=== PATIENT | male | born 1980 | race Caucasian/White ===

== ENCOUNTER 2016-06-07 12:58 | Emergency (ER) | payer SELFPAY ==
--- NOTE | 2016-06-07 16:01 | ED NURSING NOTES ---
Clinical Report - Nurses [facility] [address] [place] [address] 06/07/2016 13:00 [id number] Triage time 13:15 Jun 07 2016. Acuity: LEVEL 4. Chief Complaint: (pain in butt). --13:18 Al Irvin R.N. 13:15 06/07/16. BP: 174/97. HR: 82. RR: 18. O2 saturation: 98%. Temp: 97.9 F. --13:18 Al Irvin R.N. Weight: 76.2 kg. Height/Length: 66 inches. BMI: 27.1. --13:16 Al Irvin R.N. Medications None. --13:16 Al Irvin R.N. Allergies No Known Drug Allergy. --13:16 Al Irvin R.N. History Arrived by private vehicle. ( Pt reports hemorrhoids for last 3 years increased in pain last night). SOCIAL HX: Light tobacco smoker. Occasional alcohol use. History of drug use: marijuana. --13:18 Al Irvin R.N. Interventions ID band on patient. To treatment room. --13:18 Al Irvin R.N. PHYSICAL ASSESSMENT GENERAL / NEURO / PSYCH: Alert. Oriented X 4. Appears in no acute distress. RESPIRATORY: Respirations not labored. GI / : Bowel sounds within normal limits. SKIN: Skin is warm and dry. --13:19 Al Irvin R.N. NURSING PROGRESS NOTES Patient gowned. Reassurance given. Call light placed in reach. Side rails up x 1. Bed placed in lowest position. --13:20 Al Irvin R.N. ( assisted Dr. Rodriguez with procedure . 20 minutes. Pt. given pads to place on wound area.). --15:59 Jaimie Lockett, ER Tech1. DISPOSITION / DISCHARGE 16:18 06/07/16. BP: 122/63. HR: 62. RR: 18. O2 saturation: 100%. --16:19 Al Irvin R.N. Departure time: 1615. Condition at departure: improved. No learning barriers present. Discharge instructions provided and reviewed with the patient. Reviewed warnings. Reviewed medication(s). Treatments reviewed. Reviewed referrals. Patient verbalized understanding. Written instructions provided in French. The patient was discharged home and accompanied by family. He left the Emergency Department ambulatory and via private vehicle. Family member driving. --16:19 Al Irvin R.N. Locked/Released at 06/07/2016 20:59 by Al Irvin R.N.
--- NOTE | 2016-06-07 16:01 | ED CLINICAL REPORT ---
Clinical Report - Physicians/Mid Levels [facility] [address] [place] [address] 06/07/2016 13:00 Patient: MATTHIAS MONSALVE Time Seen: 14:13. Arrived- By private vehicle. Historian- patient. HISTORY OF PRESENT ILLNESS Chief Complaint: RECTAL PAIN and HEMORRHOIDS. This started yesterday. (3 years ago similar milder episode Worse last night). Is still present. It was abrupt in onset. The patient has had rectal pain but not had dark stools or hard stools. No constipation, nausea or vomiting. Similar symptoms previously: Once, milder. REVIEW OF SYSTEMS No cough, difficulty breathing, chest pain, skin rash or joint pain. Remote history of constipation. PAST HISTORY Illness: hx of prior constipation. SOCIAL HISTORY Current every day smoker. ADDITIONAL NOTES The nursing notes have been reviewed. PHYSICAL EXAM Vital Signs: 06/07/2016 16:18 BP: 122/63. HR: 62. RR: 18. O2 saturation: 100%. 06/07/2016 13:15 BP: 174/97. HR: 82. RR: 18. O2 saturation: 98%. Temp: 97.9 F. Appearance: Alert. Patient in mild distress. Respiratory: No respiratory distress. Abdomen: Nontender. Rectal: (Large rick of external hemorrhoids). Skin: Skin warm. Normal skin color. No rash. PROGRESS AND PROCEDURES Hemorrhoid / Thrombectomy: Performed by me. Explained procedure's risks, benefits, and alternatives to the patient. Consent obtained. The procedure was performed with the patient in the lateral decubitus position. Local anesthesia provided using 0.50% bupivacaine. Hemorrhoid(s) located externally. Cleansed with Betadine. Incision made with a #11 blade. Linear incision used. A moderate amount of clots were drained. No complications. Estimated blood loss: 3 mL. Excised at 9 and 3 oclock. Moderate clot expressed at 9 oclock. Minimal at 3 oclock. Course of Care: 00:19 06/09/16. Pt states pain is 0/10 post procedure. Disposition: Discharged. Condition: stable. CLINICAL IMPRESSION Thrombosed external hemorrhoids INSTRUCTIONS (RECHECK IN ABOUT 7 DAYS FOR CHECK IMMEIDATE RECHECK IF WORSE THERE MAY BE SOME BLEEDING. IF SO APPLY PRESSURE FOR ABOUT 10 MINUTES WITHOUT STOPPING. REPEAT X 15 MINUTES IF NEEDED. IF STILL BLEEDING THEN RECHECK IN ED). Prescription Medications: Hydrocodone/APAP 5mg / 325mg: take 1 orally every 4 hours as needed for pain. Dispense twelve (12). (USE SPARINGLY TO AVOID CONSTIPATION) Understanding of the discharge instructions verbalized by patient. Follow-up with: [facility], , , [address], , [place], [address] (Electronically signed by Sami Rodriguez MD 06/09/2016 0:21)
--- NOTE | 2016-06-07 16:01 | ED NURSING NOTES ---
Clinical Report - Nurses [facility] [address] [place] [address] 06/07/2016 13:00 [id number] TRI[facility] Triage time 13:15 Jun 07 2016. Acuity: LEVEL 4. Chief Complaint: (pain in butt). --13:18 Al Irvin R.N. 13:15 06/07/16. BP: 174/97. HR: 82. RR: 18. O2 saturation: 98%. Temp: 97.9 F. --13:18 Al Irvin R.N. Weight: 76.2 kg. Height/Length: 66 inches. BMI: 27.1. --13:16 Al Irvin R.N. Medications None. --13:16 Al Irvin R.N. Allergies No Known Drug Allergy. --13:16 Al Irvin R.N. History Arrived by private vehicle. ( Pt reports hemorrhoids for last 3 years increased in pain last night). SOCIAL HX: Light tobacco smoker. Occasional alcohol use. History of drug use: marijuana. --13:18 Al Irvin R.N. Interventions ID band on patient. To treatment room. --13:18 Al Irvin R.N. PHYSICAL ASSESSMENT GENERAL / NEURO / PSYCH: Alert. Oriented X 4. Appears in no acute distress. RESPIRATORY: Respirations not labored. GI / : Bowel sounds within normal limits. SKIN: Skin is warm and dry. --13:19 Al Irvin R.N. NURSING PROGRESS NOTES Patient gowned. Reassurance given. Call light placed in reach. Side rails up x 1. Bed placed in lowest position. --13:20 Al Irvin R.N. ( assisted Dr. Rodriguez with procedure . 20 minutes. Pt. given pads to place on wound area.). --15:59 Jaimie Lockett, ER Tech1. DISPOSITION / DISCHARGE 16:18 06/07/16. BP: 122/63. HR: 62. RR: 18. O2 saturation: 100%. --16:19 Al Irvin R.N. Departure time: 1615. Condition at departure: improved. No learning barriers present. Discharge instructions provided and reviewed with the patient. Reviewed warnings. Reviewed medication(s). Treatments reviewed. Reviewed referrals. Patient verbalized understanding. Written instructions provided in [place]. The patient was discharged home and accompanied by family. He left the Emergency Department ambulatory and via private vehicle. Family member driving. --16:19 Al Irvin R.N. Locked/Released at 06/07/2016 20:59 by Al Irvin R.N.
--- NOTE | 2016-06-07 16:01 | ED CLINICAL REPORT ---
Clinical Report - Physicians/Mid Levels [facility] [address] [place] [address] 06/07/2016 13:00 Patient: MATTHIAS MONSALVE Time Seen: 14:13. Arrived- By private vehicle. Historian- patient. HISTORY OF PRESENT ILLNESS Chief Complaint: RECTAL PAIN and HEMORRHOIDS. This started yesterday. (3 years ago similar milder episode Worse last night). Is still present. It was abrupt in onset. The patient has had rectal pain but not had dark stools or hard stools. No constipation, nausea or vomiting. Similar symptoms previously: Once, milder. REVIEW OF SYSTEMS No cough, difficulty breathing, chest pain, skin rash or joint pain. Remote history of constipation. PAST HISTORY Illness: hx of prior constipation. SOCIAL HISTORY Current every day smoker. ADDITIONAL NOTES The nursing notes have been reviewed. PHYSICAL EXAM Vital Signs: 06/07/2016 16:18 BP: 122/63. HR: 62. RR: 18. O2 saturation: 100%. 06/07/2016 13:15 BP: 174/97. HR: 82. RR: 18. O2 saturation: 98%. Temp: 97.9 F. Appearance: Alert. Patient in mild distress. Respiratory: No respiratory distress. Abdomen: Nontender. Rectal: (Large rick of external hemorrhoids). Skin: Skin warm. Normal skin color. No rash. PROGRESS AND PROCEDURES Hemorrhoid / Thrombectomy: Performed by me. Explained procedure's risks, benefits, and alternatives to the patient. Consent obtained. The procedure was performed with the patient in the lateral decubitus position. Local anesthesia provided using 0.50% bupivacaine. Hemorrhoid(s) located externally. Cleansed with Betadine. Incision made with a #11 blade. Linear incision used. A moderate amount of clots were drained. No complications. Estimated blood loss: 3 mL. Excised at 9 and 3 oclock. Moderate clot expressed at 9 oclock. Minimal at 3 oclock. Course of Care: 00:19 06/09/16. Pt states pain is 0/10 post procedure. Disposition: Discharged. Condition: stable. CLINICAL IMPRESSION Thrombosed external hemorrhoids INSTRUCTIONS (RECHECK IN ABOUT 7 DAYS FOR CHECK IMMEIDATE RECHECK IF WORSE THERE MAY BE SOME BLEEDING. IF SO APPLY PRESSURE FOR ABOUT 10 MINUTES WITHOUT STOPPING. REPEAT X 15 MINUTES IF NEEDED. IF STILL BLEEDING THEN RECHECK IN ED). Prescription Medications: Hydrocodone/APAP 5mg / 325mg: take 1 orally every 4 hours as needed for pain. Dispense twelve (12). (USE SPARINGLY TO AVOID CONSTIPATION) Understanding of the discharge instructions verbalized by patient. Follow-up with: [facility], , , [address], , [place], [address] (Electronically signed by Sami Rodriguez MD 06/09/2016 0:21)
--- NOTE | 2016-06-09 00:21 | ED MED RECONCILIATION SUMMARY ---
Patient: MERYMATTHIAS FRANCO Medication Reconciliation Report [facility] VisitID: [id number] [address] [place] [address] 35y, M Registration Date/Time: 06/07/2016 Weight: 76.2 kg Height/Length: 66 in. BMI: 27.1 ALLERGIES: No Known Drug Allergy The patient's Home Medications are listed below: NONE. The source(s) of the original Home Medication information: Not obtained. The following Medications were given to the patient in the Emergency Department: None. The following Medications were prescribed to the patient: Hydrocodone/APAP 5mg / 325mg: take 1 orally every 4 hours as needed for pain. Dispense twelve (12).(USE SPARINGLY TO AVOID CONSTIPATION) -- Sami Rodriguez MD
--- NOTE | 2016-06-09 00:21 | ED MAR SUMMARY ---
..... Medication Administration Record [facility] [address] [place], [place] [id number] Patient: MERY MONTALVOMATTHIAS ROJAS Visit ID: [id number] 35y, M Weight: 76.2 kg Height/Length: 66 in BMI: 27.1 ALLERGIES: No Known Drug Allergy
--- NOTE | 2016-06-09 00:21 | ED DISCHARGE INSTRUCTIONS ---
Patient: MATTHIAS MONSALVE General Instructions [facility] VisitID: [id number] [address], [place] [address] 35y, M Registration Date/Time: 06/07/2016 Thrombosed external hemorrhoids INSTRUCTIONS (RECHECK IN ABOUT 7 DAYS FOR CHECK IMMEIDATE RECHECK IF WORSE THERE MAY BE SOME BLEEDING. IF SO APPLY PRESSURE FOR ABOUT 10 MINUTES WITHOUT STOPPING. REPEAT X 15 MINUTES IF NEEDED. IF STILL BLEEDING THEN RECHECK IN ED). Prescription Medications: Hydrocodone/APAP 5mg / 325mg: take 1 orally every 4 hours as needed for pain. Dispense twelve (12). (USE SPARINGLY TO AVOID CONSTIPATION) Understanding of the discharge instructions verbalized by patient. Follow-up with: [facility], , , [address], , [place], [address] ADDITIONAL INFORMATION Hemorrhoids,External A hemorrhoid is a local swelling of the veins around the rectum. These most often occur from repeated forceful straining during bowel movements or heavy lifting. It may also occur in the last few months of . A hemorrhoid feels like a soft lump. It may itch from time to time. When it is inflamed it becomes hard and very painful. Home Care: SITZ BATHS: Sit in a tub filled with about 6 inches of hot water. Allow the water to run in order to keep it hot for a total of 10-15 minutes. Repeat this three times a day until pain is relieved. Keep your stools soft to avoid the need to strain when having a bowel movement. Unless another medicine was prescribed, try the following: IF YOU ARE CONSTIPATED: You may use siov-vii-fskvrxt laxatives such as MILK OF MAGNESIA (mild acting) or, DULCOLAX (if stronger action is needed). IF YOU ARE NOT CONSTIPATED but stools are hard, try taking Colace (docusate sodium) which is a stool softener. This will soften stools without producing diarrhea. Drinking extra fluids may also help. The use of creams applied to the hemorrhoid itself, such as ANUSOL or PREPARATION H, will be helpful to reduce pain and itching, and speed healing. Prevention: Avoid straining on the toilet by keeping stools soft. Increasing FIBER in your diet (fruits, cereals, vegetables and grains) will promote healthy bowel movement. If this is not working, you may use METAMUCIL and similar products. These are iobx-xgf-ietjqlx fiber supplements. You must drink extra fluids when taking these to avoid constipation. Follow Up with your doctor if you do not begin to respond to the above treatment within the next few days. Get Prompt Medical Attention if any of the following occur: Large amount of rectal bleeding (more than 1 cup of blood in 24 hours) Increasing rectal pain or rectal pain that continues for more than three days of treatment Weakness, dizziness or fainting Vomiting blood (red or black color) You have been given the following additional information: Hemorrhoids (Electronically signed by Sami Rodriguez MD 06/09/2016 0:21)
--- NOTE | 2016-06-09 00:21 | ED MED RECONCILIATION SUMMARY ---
Patient: MERYMATTHIAS FRANCO Medication Reconciliation Report [facility] VisitID: [id number] [address] [place] [address] 35y, M Registration Date/Time: 06/07/2016 Weight: 76.2 kg Height/Length: 66 in. BMI: 27.1 ALLERGIES: No Known Drug Allergy The patient's Home Medications are listed below: NONE. The source(s) of the original Home Medication information: Not obtained. The following Medications were given to the patient in the Emergency Department: None. The following Medications were prescribed to the patient: Hydrocodone/APAP 5mg / 325mg: take 1 orally every 4 hours as needed for pain. Dispense twelve (12).(USE SPARINGLY TO AVOID CONSTIPATION) -- Sami Rodriguez MD
--- NOTE | 2016-06-09 00:21 | ED DISCHARGE INSTRUCTIONS ---
Patient: MATTHIAS MONSALVE General Instructions [facility] VisitID: [id number] [address], [place] [address] 35y, M Registration Date/Time: 06/07/2016 Thrombosed external hemorrhoids INSTRUCTIONS (RECHECK IN ABOUT 7 DAYS FOR CHECK IMMEIDATE RECHECK IF WORSE THERE MAY BE SOME BLEEDING. IF SO APPLY PRESSURE FOR ABOUT 10 MINUTES WITHOUT STOPPING. REPEAT X 15 MINUTES IF NEEDED. IF STILL BLEEDING THEN RECHECK IN ED). Prescription Medications: Hydrocodone/APAP 5mg / 325mg: take 1 orally every 4 hours as needed for pain. Dispense twelve (12). (USE SPARINGLY TO AVOID CONSTIPATION) Understanding of the discharge instructions verbalized by patient. Follow-up with: [facility], , , [address], , [place], [address] ADDITIONAL INFORMATION Hemorrhoids,External A hemorrhoid is a local swelling of the veins around the rectum. These most often occur from repeated forceful straining during bowel movements or heavy lifting. It may also occur in the last few months of . A hemorrhoid feels like a soft lump. It may itch from time to time. When it is inflamed it becomes hard and very painful. Home Care: SITZ BATHS: Sit in a tub filled with about 6 inches of hot water. Allow the water to run in order to keep it hot for a total of 10-15 minutes. Repeat this three times a day until pain is relieved. Keep your stools soft to avoid the need to strain when having a bowel movement. Unless another medicine was prescribed, try the following: IF YOU ARE CONSTIPATED: You may use scwf-pou-rkwboex laxatives such as MILK OF MAGNESIA (mild acting) or, DULCOLAX (if stronger action is needed). IF YOU ARE NOT CONSTIPATED but stools are hard, try taking Colace (docusate sodium) which is a stool softener. This will soften stools without producing diarrhea. Drinking extra fluids may also help. The use of creams applied to the hemorrhoid itself, such as ANUSOL or PREPARATION H, will be helpful to reduce pain and itching, and speed healing. Prevention: Avoid straining on the toilet by keeping stools soft. Increasing FIBER in your diet (fruits, cereals, vegetables and grains) will promote healthy bowel movement. If this is not working, you may use METAMUCIL and similar products. These are hvul-euc-efbakai fiber supplements. You must drink extra fluids when taking these to avoid constipation. Follow Up with your doctor if you do not begin to respond to the above treatment within the next few days. Get Prompt Medical Attention if any of the following occur: Large amount of rectal bleeding (more than 1 cup of blood in 24 hours) Increasing rectal pain or rectal pain that continues for more than three days of treatment Weakness, dizziness or fainting Vomiting blood (red or black color) You have been given the following additional information: Hemorrhoids (Electronically signed by Sami Rodriguez MD 06/09/2016 0:21)
--- NOTE | 2016-06-09 00:21 | ED MAR SUMMARY ---
..... Medication Administration Record [facility] [address], [place] [id number] Patient: MERY MONTALVOMATTHIAS ROJAS Visit ID: [id number] 35y, M Weight: 76.2 kg Height/Length: 66 in BMI: 27.1 ALLERGIES: No Known Drug Allergy
== END 2016-06-07 16:15 | disposition home or self-care (01) ==
LOC: ED SRH 12:58
DX: K64.5 Perianal venous thrombosis (principal); Z72.0 Tobacco use